=== PATIENT | female | born 1980 | race Caucasian/White ===

== ENCOUNTER 2020-08-10 05:41 | Inpatient (IN) ==
--- NOTE | 2020-08-03 08:17 | Anesthesiology Consultation ---
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 No known Covid positive contacts or Covid related symptoms. No known Covid infection in the past 90 days. Preop Covid testing scheduled 08/06/20= will await results. History Surgery Operation Date: 08/10/20 07:30 Proposed Procedures p Section in LD - Grace Richey MD Height/Weight Height: 5 ft 7 in Weight: 115.666 kg Allergies Allergy/AdvReac Type Severity Reaction Status Date / Time No Known Allergies Allergy Verified 08/02/20 16:27 Medications Home Medications Medication Instructions Recorded Confirmed Last Taken prenat.vits,carlitos,lcr-nivy-lzcsn 1 tab PO BID 01/18/20 08/02/20 Unknown breast pump #1 ea 08/02/20 08/02/20 Unknown Past Medical History Medical History No significant past medical history Past Family History Family History Father Heart disease Grandmother (Maternal) Uterine cancer Mother Gestational diabetes Other Dyslipidemia Hypertension Myocardial infarction No family history of adverse response to anesthesia Past Surgical History Surgical History History of arthroscopy of right knee History of wisdom tooth extraction Social History Smoking Status: Never smoker Do You Dip or Chew Tobacco: No Hx Alcohol Use: No Hx Substance Use: No substance use type: does not use
[2020-08-10] MEDS ORDERED: LACTATED RINGER'S 1,000 ML IV SCH ×2 (06:00→11:28)
[2020-08-10] MEDS ORDERED: CITRIC ACID/SODIUM CITRATE 15 ML UDC PO SCH (06:00)
[2020-08-10 06:06] LABS: Basophils # (auto) 0.03 K/uL (0-0.2); Basophils % (auto) 0.3 %; Eosinophils # (auto) 0.22 K/uL (0-0.5); Hematocrit (blood only) 36.7 % (37-47); Hemoglobin 12.9 g/dL (12.0-16.0); Immature Granulocytes # (auto) 0.05 K/uL (0.00-0.02); Immature Granulocytes % (auto) 0.5 %; Lymphocytes # (auto) 3.28 K/uL (1.2-3.4); Lymphocytes % (auto) 30.4 %; Mean Corpuscular Hemoglobin 30.6 pg (25-34); Mean Corpuscular Hgb Conc 35.1 g/dL (32-36); Mean Corpuscular Volume 87.2 fL (80-100); Mean Platelet Volume 9.7 fL (7.4-10.4); Monocytes # (auto) 0.72 K/uL (0.11-0.59); Monocytes % (auto) 6.7 %; Neutrophils # (auto) 6.48 K/uL (1.4-6.5); Neutrophils % (auto) 60.1 %; Platelet Count 280 K/uL (130-400); RDW Coefficient of Variation 12.8 % (11.5-14.5); RDW Standard Deviation 41.1 fL (36.4-46.3); Red Blood Count 4.21 M/uL (4.2-5.4); White Blood Count 10.78 K/uL (4.8-10.8)
[2020-08-10 07:04] LABS: Appearance Urine Clear (Clear); Bacteria Urine Automated Negative (Negative); Bilirubin Urine Negative (Negative); Blood Urine Negative (Negative); Color Urine Yellow; Epithelial Cell Urine Auto 20-30 /lpf (0-5); Glucose Urine UA Negative (Negative); Ketones Urine Negative (Negative); Leukocyte Esterase Urine 2+ (Negative); Nitrite Urine Negative (Negative); Protein Urine Negative (Negative); RBC Urine Automated 0-4 /hpf (0-4); Specific Gravity Urine 1.017 (1.000-1.030); Urobilinogen Urine Negative (Negative); WBC Urine Automated >30 /hpf (0-5); pH Urine 6.5 (4.5-7.5)
--- NOTE | 2020-08-10 07:14 | History & Physical Bridge Note ---
Date of Service August 10, 2020 History & Physical Bridge Note I have examined the patient, reviewed the History & Physical and in the interval since the performance of the History & Physical I have noted the following changes of clinical significance: no changes noted
[2020-08-10] MEDS ORDERED: ONDANSETRON INJ 2 MG/ML 2 ML VIAL ONE ×2 (07:17→10:08)
[2020-08-10] MEDS ORDERED: fentaNYL citrate 100 MCG/2 ML VIAL ONE (07:20)
[2020-08-10] MEDS ORDERED: MoRPHine SULFATE PF 1 MG/ML 10 ML AMP/VIAL ONE (07:21)
[2020-08-10] MEDS ORDERED: KETOROLAC 30 MG/ML VIAL IV PRN (09:20)
[2020-08-10] MEDS ORDERED: diphenhydrAMINE 50 MG/ML VIAL IV PRN (09:20)
[2020-08-10] MEDS ORDERED: ePHEDrine sulfate 50 MG/ML AMP IV PRN (09:20)
[2020-08-10] MEDS ORDERED: NALOXONE HCL 0.08 MG in SYRINGE 1.8 ML IV PRN (09:20)
[2020-08-10] MEDS ORDERED: NALOXONE HCL 1 MG in SODIUM CHLORIDE 0.9% 1000ML 1,000 ML IV PRN (09:20)
[2020-08-10] MEDS ORDERED: NALOXONE HCL 0.4 MG/1 ML VIAL/CARP IV PRN (09:20)
[2020-08-10] MEDS ORDERED: LACTATED RINGER'S 500 ML IV PRN (09:20)
[2020-08-10] MEDS ORDERED: MoRPHine SULFATE PF 1 MG/ML 10 ML AMP/VIAL INT SPINAL ONE (09:20)
[2020-08-10] MEDS ORDERED: HYDROmorphone INJ 0.5 MG/0.5 ML SYR IV PRN (09:20)
--- NOTE | 2020-08-10 09:22 | Operative Report ---
PG Post Operative Report Pre & Post Diagnosis Operation Date: 08/10/20 07:30 Pre-Op Diagnosis: 1. Term 2. Breech presentation Post-Op Diagnosis: Same I identified the patient and participated in the time-out.: Yes Procedure Operation Date: 08/10/20 07:30 Actual Procedures Low Transverse Section Surgeon Grace Richey MD Interline Clerk Trevon BARAHONA Estimated Blood Loss 500 Findings Consistent with Post-Op Diagnosis Specimens Placenta, Cord blood Anesthesia Type Spinal Complications none Disposition Accompanied Patient To Recovery: Yes Disposition: L&D Description of Procedure The patient was brought to the operating room and placed on the table in the supine position with a leftward tilt, then prepped and draped in standard sterile fashion. A hard time out was taken prior to proceeding. A pfannensteil incision was created sharply and carried down to the fascia using bovie electrocautery. The fascia was nicked and then extended using burnett scissors. The edges of the fascia were grasped with Terra clamps and elevated, then sharply and bluntly dissected off the underlying rectus. The midline of the rectus was identified and bluntly . The peritoneum was bluntly entered, and this entry was extended using pressure from the surgeon's hands. The bladder retractor was placed and the lower uterine segment was examined and found to be well developed. A bladder flap was created and the retractor was replaced behind this flap to protect the bladder. A transverse lower uterine incision was then created, with final entry to the uterine cavity made in a blunt manner with the surgeon's finger. Clear amniotic fluid was encountered. The breech was elevated through the hysterotomy, the was rotated to sacrum-anterior and wrapped in a wet blue towel, delivered to the shoulders, the arms were physiologically swept, and the head was delivered with the neck in flexion. The cord was doubly clamped and cut, then the vigorous infant was taken to the warmer for furnace puncher care. The placenta was manually extracted, then the uterus was gently exteriorized from the maternal abdomen. The cavity was cleared of clot and debris using a dry lap sponge. The angles of the incision were identified with allis clamps, and the hysterotomy was then repaired in running locked fashion using 0-vicryl suture, followed by a second imbricating layer. The tubes and ovaries were examined and found to be normal bilaterally. The posterior gutter was irrigated and cleared of clot and debris. The uterus was then gently re-internalized to the abdomen. Lateral gutters were cleared of clot and debris using a damp lap sponge, and a final exam of the hysterotomy revealed good hemostasis. The rectus muscles were allowed to reapproximate naturally. The angle of the fascia was grasped with a Terra clamp and the fascia was then repaired in running non-locked fashion with 1- vicryl suture. At the completion of repair, the fascia was examined and found to be free of any defect. The subcutaneous tissue was copiously irrigated and then reapproximated using 3-0 chromic. The skin was then closed using 4-0 monocryl in a running subcuticular fashion and a dermabond dressing was applied. The morin was noted to be draining clear yellow urine as the patient was transferred back to her recovery room. I attest to the content of the Intraoperative Record and any orders documented therein. Any exceptions are noted below.
[2020-08-10] MEDS ORDERED: DC INTRASPINAL MORPHINE SCH (09:30)
[2020-08-10] MEDS ORDERED: NO NARCOTICS OR SEDATIVES SCH (09:30)
[2020-08-10] MEDS ORDERED: SODIUM CHLORIDE 0.9% 1000ML 1,000 ML IV SCH (09:30)
--- NOTE | 2020-08-10 09:59 | Anesthesiology Progress Note ---
Date of Service August 10, 2020 Anesthesia Post Procedure Vital Signs Vital Signs: Temp Pulse Resp BP Pulse Ox 08/10/20 09:57 63 99 08/10/20 09:54 16 08/10/20 09:53 75 93 08/10/20 09:52 74 125/87 100 08/10/20 09:47 63 100 08/10/20 09:42 68 14 108/73 99 08/10/20 09:37 71 104/62 100 08/10/20 09:33 72 92 08/10/20 09:32 61 14 105/67 100 08/10/20 09:27 74 99 08/10/20 09:22 71 15 107/70 100 08/10/20 09:17 64 100 08/10/20 09:12 67 98 08/10/20 09:11 36.5 C 67 19 103/67 08/10/20 09:07 76 100 08/10/20 07:30 36.7 C 20 08/10/20 07:15 77 100 08/10/20 07:13 202 H 87 L 08/10/20 07:02 70 130/86 08/10/20 06:01 68 129/78 08/10/20 05:48 36.8 C 16 Transfer of Care Handoff Completed per policy Notes Mental Status: alert / awake / arousable and participated in evaluation Patient Amnestic to Procedure: Yes Nausea / Vomiting: adequately controlled Pain: adequately controlled Airway Patency, RR, SpO2: stable & adequate BP & HR: stable & adequate Hydration State: stable & adequate Neuraxial Anesthesia: was administered and sensory block is resolving Anesthetic Complications: no major complications apparent and Pt Satisfied with anesthetic care
[2020-08-10] MEDS ORDERED: HYDROCORTISONE ACETATE 25 MG SUPP PR PRN (11:28)
[2020-08-10] MEDS ORDERED: SUPERCREAM 0.870% 15 GM JAR EXT PRN (11:28)
[2020-08-10] MEDS ORDERED: BENZOCAINE 20% AER SPR 82.5 GM CAN EXT PRN (11:28)
[2020-08-10] MEDS ORDERED: DIPHTHERIA/TETANUS/PERTUSSIS 0.5 ML SYR/VIAL IM ONE (11:28)
[2020-08-10] MEDS ORDERED: MAGNESIUM HYDROXIDE SUSP 30 ML UDC PO PRN (11:28)
[2020-08-10] MEDS ORDERED: OXYTOCIN 30 UNITS in LACTATED RINGER'S 1,000 ML IV SCH (11:28)
[2020-08-10] MEDS ORDERED: SENNA 8.6 MG TAB PO PRN (11:28)
[2020-08-10] MEDS: ONDANSETRON INJ 2 MG/ML 2 ML VIAL IV PRN ×2 (11:44→16:20)
[2020-08-10] MEDS: SIMETHICONE 80 MG CHEW PO SCH (12:30)
[2020-08-10] MEDS: DOCUSATE SODIUM 100 MG CAP PO SCH (20:07)
[2020-08-11] MEDS: IBUPROFEN 600 MG TAB PO PRN ×5 (00:05→20:13)
[2020-08-11] MEDS ORDERED: PROMETHAZINE HCL 25 MG in SODIUM CHLORIDE 0.9% 50 ML IV PRN (03:24)
[2020-08-11] MEDS ORDERED: diphenhydrAMINE Capsule 25 MG CAP PO PRN (03:24)
[2020-08-11] MEDS ORDERED: oxyCODONE/ACETAMINOPHEN 5mg/325mg TAB PO PRN (03:24)
[2020-08-11] MEDS ORDERED: MEPERIDINE HCL 50 MG/ML CARP IV PRN (03:24)
[2020-08-11] MEDS ORDERED: KETOROLAC 30 MG/ML VIAL IV PRN (03:24)
[2020-08-11] MEDS ORDERED: ONDANSETRON INJ 2 MG/ML 2 ML VIAL IV PRN (03:24)
[2020-08-11] MEDS ORDERED: diphenhydrAMINE 50 MG/ML VIAL IV PRN (03:24)
--- NOTE | 2020-08-11 04:38 | Obstetrical Progress Note ---
Date of Service <Froylan Garrett MD - Last Filed: 08/11/20 06:28> August 11, 2020 Assessment & Plan <Froylan Garrett MD - Last Filed: 08/11/20 06:28> (1) Status post repeat low transverse section: - PNL: Rh [pos], RI, GBS pos, COVID [neg] - Feels well today. Eating well, voiding well, ambulating well - Pain well controlled with ibuprofen 600mg Q4H PRN - Routine postop care -- OOB, ambulation, diet progression as tolerated - After discharge will have 6 week follow-up with Dr. Richey Subjective <Froylan Garrett MD - Last Filed: 08/11/20 06:28> Anushka is a 39 y/o female who is POD#1 following at 39+ weeks. She reports feeling well overall this morning. Some abdominal cramping and 4/10 pain well managed on analgesics. Voiding well. Tolerating meals overnight without difficulty. Patient has been able to ambulate some. Is passing gas, has not yet had a bowel movement. Has persistent lochia with some improvement this morning. Currently . Physical Exam <Froylan Garrett MD - Last Filed: 08/11/20 06:28> General: Alert, oriented. No acute distress. Cardiac: Regular rate and rhythm. No murmurs. Respiratory: Clear to auscultation bilaterally a/p, no wheezes/rales/rhonchi. No increased work of breathing. Symmetrical chest rise. No respiratory distress. Abdomen: Soft, nontender, nondistended. Bowel sounds present. Surgical scar clean, dry, intact. Uterus: Uterine fundus firm, palpable ~1 cm below umbilicus. Lower Extremities: No lower extremity edema or swelling. No deep calf pain. Maura's negative bilaterally. Results & Data ([facility]) <Froylan Garrett MD - Last Filed: 08/11/20 06:28> Vital Signs (Past 12 Hours) Vital Signs Temp Pulse Resp BP BP Pulse Ox Pulse Ox 08/11/20 00:00 36.8 C 62 16 122/80 98 08/10/20 21:09 16 98 08/10/20 21:07 36.5 C 59 L 16 125/85 98 98 08/10/20 19:00 20 98 08/10/20 18:00 20 97 08/10/20 17:00 16 97 <Grace Richey MD - Last Filed: 08/11/20 08:09> Co-Signing Physician Notes Resident Physician Supervision Note: I interviewed and examined the patient. Discussed with Dr. Covington and agree with findings and plan as documented in the note. Any exceptions or clarifications are listed here: [ ] Documented By: Grace Richey MD, FACOG Resident Activity Tracking <Froylan Garrett MD - Last Filed: 08/11/20 06:28> Resident Involvement: Resident Care Provided Care Provided: OB Delivery
[2020-08-11 06:42] LABS: Basophils # (auto) 0.04 K/uL (0-0.2); Basophils % (auto) 0.3 %; Eosinophils # (auto) 0.17 K/uL (0-0.5); Eosinophils % (auto) 1.3 %; Hematocrit (blood only) 29.4 % (37-47); Hemoglobin 10.5 g/dL (12.0-16.0); Immature Granulocytes # (auto) 0.03 K/uL (0.00-0.02); Immature Granulocytes % (auto) 0.2 %; Lymphocytes # (auto) 3.39 K/uL (1.2-3.4); Lymphocytes % (auto) 26.8 %; Mean Corpuscular Hemoglobin 31.3 pg (25-34); Mean Corpuscular Hgb Conc 35.7 g/dL (32-36); Mean Corpuscular Volume 87.5 fL (80-100); Mean Platelet Volume 9.9 fL (7.4-10.4); Monocytes # (auto) 0.84 K/uL (0.11-0.59); Monocytes % (auto) 6.6 %; Neutrophils # (auto) 8.17 K/uL (1.4-6.5); Neutrophils % (auto) 64.8 %; Platelet Count 235 K/uL (130-400); RDW Coefficient of Variation 12.9 % (11.5-14.5); RDW Standard Deviation 41.7 fL (36.4-46.3); Red Blood Count 3.36 M/uL (4.2-5.4); White Blood Count 12.64 K/uL (4.8-10.8)
[2020-08-11] MEDS: DOCUSATE SODIUM 100 MG CAP PO SCH ×2 (08:17→20:14)
[2020-08-11] MEDS: PRENATAL VITAMIN 1 TAB PO SCH (08:18)
[2020-08-11] MEDS: SIMETHICONE 80 MG CHEW PO SCH ×4 (08:18→20:15)
[2020-08-11] MEDS: FERROUS SULFATE 325 MG TAB PO SCH (08:18)
[2020-08-12] MEDS: IBUPROFEN 600 MG TAB PO PRN ×6 (00:52→21:34)
[2020-08-12] MEDS: DOCUSATE SODIUM 100 MG CAP PO SCH ×2 (08:05→20:56)
[2020-08-12] MEDS: PRENATAL VITAMIN 1 TAB PO SCH (08:05)
[2020-08-12] MEDS: SIMETHICONE 80 MG CHEW PO SCH ×4 (08:05→20:56)
[2020-08-12 08:38] LABS: Hematocrit (blood only) 31.2 % (37-47); Hemoglobin 10.9 g/dL (12.0-16.0)
[2020-08-12] MEDS: FERROUS SULFATE 325 MG TAB PO SCH (09:46)
--- NOTE | 2020-08-12 09:53 | Obstetrical Progress Note ---
Date of Service August 12, 2020 Assessment & Plan (1) Status post repeat low transverse section: 39yo day 2 S/p LTCS. Doing well. Routine care Subjective Ambulation: ambulating normally Voiding: no voiding problems Passing Gas:: Yes Diet Tolerance:: regular diet Lochia:: Moderate Feeding Type:: breast feeding Physical Exam Constitutional WD/WN, vitals as above Respiratory normal respiratory effort; no respiratory distress and no labored breathing Gastrointestinal (Abdomen) Inspection/Auscultation: abdomen normal to inspection; abdomen not distended Percussion/Palpation: abdomen soft; abdomen nontender, no guarding and abdomen not rigid Incision C/D/I Genitourinary OB Exam Abdomen: + fundal height Fundus: + firm and + relation to umbilicus (Below); not tender and not boggy Results & Data ([facility]) Vital Signs (Past 12 Hours) Vital Signs Temp Pulse Resp BP 08/12/20 07:25 36.5 C 69 18 130/84
[2020-08-13] MEDS: IBUPROFEN 600 MG TAB PO PRN ×3 (01:58→12:53)
[2020-08-13] MEDS: SIMETHICONE 80 MG CHEW PO SCH ×2 (07:45→12:53)
[2020-08-13] MEDS: PRENATAL VITAMIN 1 TAB PO SCH (07:45)
[2020-08-13] MEDS: FERROUS SULFATE 325 MG TAB PO SCH (07:46)
[2020-08-13] MEDS: DOCUSATE SODIUM 100 MG CAP PO SCH (07:46)
--- NOTE | 2020-08-13 07:53 | Obstetrical Progress Note ---
Date of Service August 13, 2020 Assessment & Plan (1) Status post repeat low transverse section: 39yo day 2 S/p LTCS. Doing well. Stable for discharge Subjective Ambulation: ambulating normally Voiding: no voiding problems Passing Gas:: Yes Diet Tolerance:: regular diet Lochia:: Moderate Feeding Type:: breast feeding Physical Exam Constitutional WD/WN, vitals as above Respiratory normal respiratory effort; no respiratory distress and no labored breathing Gastrointestinal (Abdomen) Inspection/Auscultation: abdomen normal to inspection; abdomen not distended Percussion/Palpation: abdomen soft; abdomen nontender, no guarding and abdomen not rigid Incision: C/D/I Genitourinary OB Exam Abdomen: + fundal height Fundus: + firm and + relation to umbilicus (Below); not tender and not boggy Results & Data ([facility]) Vital Signs (Past 12 Hours) Vital Signs Temp Pulse Resp BP 08/12/20 23:45 36.7 C 67 18 111/77
--- NOTE | 2020-08-14 08:13 | Discharge Summary ---
Date of Service August 14, 2020 Discharge Data Consultations 08/10/20 05:41 Consult Anesthesiology Stat Procedures Performed Operation Date: 08/10/20 07:30 Actual Procedures p Section in LD with the of a live female child at 0823 in Main OR # 3. (Bilateral) - Grace Richey MD Hospital Course (1) Breech presentation of fetus: Patient underwent uncomplicated section for breech presentation, and had an uncomplicated postop course. She was discharged home on POD#2 with usual plan for 6 week follow up. Coding Level of Care Code None Diagnoses Breech presentation of fetus O32.1XX0
== END 2020-08-13 13:40 | disposition home or self-care (01) | DRG 788 ==
LOC: 4S1 05:41 → 4S2 11:30 → EDSTATUS 08-13 08:50

== ENCOUNTER 2023-11-20 06:58 | Inpatient (IN) ==
--- NOTE | 2023-11-09 14:05 | Anesthesiology Consultation ---
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 No known infectious disease contacts in past 10 days or current infectious disease symptoms. No recent travel outside the country. Patient seen by [facility] 08/25/2023 = Patient referred for assessment and echocardiography as new patient due to advanced maternal age. Patient with difficulty with visualization of the heart on prior obstetrical ultrasounds. Current is otherwise uncomplicated. Baby's heart appears normal. No further follow-up in cardiology clinic is necessary prior to delivery unless new concerns or question arises. I do not see any contraindication from a cardiac standpoint for her to deliver at [facility]. Pediatric cardiology team at [facility] could be consulted at any time should there be any concern about baby's cardiovascular status. History Surgery Operation Date: 11/20/23 07:30 Proposed Procedures p Section (Delivery of Baby Through Abdominal Incision) - Stacia Marin MD, FACOG Height/Weight Height: 5 ft 7 in Weight: 124.738 kg Allergies Allergy/AdvReac Type Severity Reaction Status Date / Time No Known Allergies Allergy Verified 11/09/23 10:48 Medications Home Medications Medication Instructions Recorded Confirmed Last Taken prenat.vits,carlitos,zku-nzzu-btqle 1 tab PO BID 01/18/20 11/09/23 Unknown acetone (urine) test (Ketone Urine #50 ea 09/21/23 11/05/23 Unknown Test strips) blood-glucose meter (OneTouch #1 ea 09/21/23 11/05/23 Unknown Verio Reflect Meter) lancets 33 gauge (OneTouch Delica #150 ea 09/21/23 11/05/23 Unknown Plus Lancet) blood sugar diagnostic (OneTouch #150 ea 11/02/23 11/05/23 Unknown Verio test strips) propranolol 40 mg tablet 20 - 40 mg PO UD PRN prior to 11/09/23 11/09/23 Unknown musical concerts, helps w/adrenaline zee Past Medical History Medical History GBS carrier Gestational diabetes w/current (2023) History of asthma as a child, no inhaler since high school, no current issues History of chicken pox as a child Nausea and vomiting after administration of anesthetic agent after last (spinal anesthesia) Past Family History Family History Father Heart disease Grandmother (Maternal) Uterine cancer Mother Gestational diabetes Other Dyslipidemia Hypertension Myocardial infarction No family history of adverse response to anesthesia Denies family history of Ovarian cancer Breast cancer Colorectal cancer Past Surgical History Surgical History (Updated 11/09/23 @ 14:06 by Rosario Barba PA-C) History of arthroscopy of right knee History of wisdom tooth extraction S/P section 2020- due to breech position Social History Smoking Status: Never smoker Do You Dip or Chew Tobacco: No Hx Alcohol Use: Yes (none in last 4 years) Hx Substance Use: No substance use type: does not use
--- NOTE | 2023-11-20 07:22 | History & Physical Report ---
Date of Service November 20, 2023 Assessment & Plan (1) Previous delivery affecting , antepartum: Plan: Repeat section. The patient was counseled to the nature of the procedure including alternatives such as labor. Risks were discussed including bleeding infection injury to bowel bladder ureter vessels and even baby. The risks of internal organ injury were discussed as being higher with prior sections. Deep Vein Thrombosis, pulmonary embolus and breakdown of the incision discussed. Deep vein thrombosis pulmonary embolus hernia and failure of the incision to heal were discussed Patient verbalized understanding of this and was given ample time to ask questions Admission and Anticipated Discharge Date Admission Date: November 20, 2023 History of Present Illness Primary Care Provider: David Graff FREDDY Calculator Estimated Delivery Date Method Current WG Current Estimate 11/22/23 LMP (Certain) 39w 3d LMP: 02/15/23 : 3 Full term: 1 Premature: 0 Total Number of Induced Abortions: 0 Total Number of Spontaneous Abortions: 1 Ectopics: 0 Multiple births: 0 Number of Living Children: 1 and Delivery Plans AMA>40@del *Anatomy Scan @ 20wks * Echo [id number]- 08/25/23 *Growth scan @32wks *Weekly NST's @36 wks *Twice weekly NST @38wks *Weekly TORY's @38wks *Deliver by 40 wks GDM w/28wk glucola *Begin monthly Growth US's Previous - 1'CS was for Breech, never labored Interested in CONSENT SIGNED - 09/04/2023 C/S SCHEDULED FOR 11/20/[address] HERRING Allergies Allergy/AdvReac Type Severity Reaction Status Date / Time No Known Allergies Allergy Verified 11/18/23 14:30 Home Medications Medication Instructions Recorded Confirmed Type prenat.vits,carlitos,moh-prpn-cojkq 1 tab PO BID 01/18/20 11/18/23 History acetone (urine) test (Ketone Urine #50 ea 09/21/23 11/18/23 Rx Test strips) blood-glucose meter (OneTouch #1 ea 09/21/23 11/18/23 Rx Verio Reflect Meter) lancets 33 gauge (OneTouch Delica #150 ea 09/21/23 11/18/23 Rx Plus Lancet) blood sugar diagnostic (OneTouch #150 ea 11/02/23 11/18/23 Rx Verio test strips) propranolol 40 mg tablet 20 - 40 mg PO UD PRN prior to 11/09/23 11/18/23 History musical concerts, helps w/adrenaline zee breast pump #1 ea 11/13/23 11/18/23 Rx Patient History Medical History Nausea and vomiting after administration of anesthetic agent after last (spinal anesthesia) History of asthma as a child, no inhaler since high school, no current issues Gestational diabetes w/current (2023) History of chicken pox as a child GBS carrier Surgical History (Updated 11/09/23 @ 14:06 by Rosario Barba PA-C) S/P section 2020- due to breech position History of wisdom tooth extraction History of arthroscopy of right knee Family History Father Heart disease Grandmother (Maternal) Uterine cancer Mother Gestational diabetes Other Dyslipidemia Hypertension Myocardial infarction No family history of adverse response to anesthesia Denies family history of Ovarian cancer Breast cancer Colorectal cancer Social History (Updated 04/08/23 @ 14:05 by Vera Delong) Smoking Status: Never smoker Second Hand Exposure: No; Do You Dip or Chew Tobacco: No; Tobacco Cessation Education Requested by Patient: No Hx Alcohol Use: Yes (none in last 4 years) Hx Substance Use: No Preferred Language: [place] Zealander Communication Ability: Effective Computer Patternmaker Required: No Beliefs That Will Affect Care: Buddhist Buddhist Beliefs: anglican marital status: marital status details: Eben Zambrano [phone] Current Living Situation: Spouse and Family Current Living Situation Comment: lives with spouse, son, step 2 stepdaughter, no pets current occupational status: employed 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 @ [employer], Other Information That Helps Us Care for You: No Feels Safe at Home: Yes Safety Concerns: Feels Safe At This Time Assistive Devices: Contacts and Glasses Physical Exam Constitutional: WD/WN, vitals as above well developed and well nourished Respiratory: normal respiratory effort, lungs clear to auscultation normal respiratory effort Cardiovascular: RRR, no murmur, no edema Gastrointestinal (Abdomen): normal bowel sounds, soft, nontender, no hepatosplenomegaly Results & Data Vital Signs (Past 12 Hours) Vital Signs Pulse BP 11/20/23 07:14 75 138/97 Coding Level of Care Code None Diagnoses Previous delivery affecting , antepartum O34.219
[2023-11-20] MEDS: LACTATED RINGER'S 1,000 ML IV SCH ×3 (07:42→22:09)
[2023-11-20 08:00] LABS: Basophils # (auto) 0.06 K/uL (0.00-0.20); Basophils % (auto) 0.7 %; Eosinophils # (auto) 0.15 K/uL (0.00-0.50); Eosinophils % (auto) 1.7 %; Hematocrit (blood only) 36.7 % (37.0-47.0); Hemoglobin 12.5 g/dl (12.0-16.0); Immature Granulocytes # (auto) 0.02 K/uL (0.01-0.20); Immature Granulocytes % (auto) 0.2 %; Lymphocytes # (auto) 2.58 K/uL (1.20-3.40); Mean Corpuscular Hemoglobin 29.3 pg (25.0-34.0); Mean Corpuscular Hgb Conc 34.1 g/dL (32.0-36.0); Mean Corpuscular Volume 85.9 fL (80.0-100.0); Mean Platelet Volume 9.9 fL (9.4-12.4); Monocytes # (auto) 0.57 K/uL (0.11-0.59); Monocytes % (auto) 6.6 %; Neutrophils # (auto) 5.21 K/uL (1.40-6.50); Neutrophils % (auto) 60.8 %; Platelet Count 269 K/uL (130-400); RDW Coefficient of Variation 13.2 % (11.5-14.5); RDW Standard Deviation 40.7 fL (36.4-46.3); Red Blood Count 4.27 M/uL (4.20-5.40); White Blood Count 8.59 K/ul (4.8-10.8)
[2023-11-20] MEDS ORDERED: SODIUM CHLORIDE 0.9% 250 ML IV PRN (08:08)
[2023-11-20] MEDS ORDERED: ONDANSETRON INJ 2 MG/ML 2 ML VIAL ONE (08:27)
[2023-11-20] MEDS ORDERED: fentaNYL citrate PF 100 MCG/2 ML VIAL ONE (08:27)
[2023-11-20] MEDS ORDERED: MoRPHine SULFATE PF 1 MG/ML 10 ML AMP/VIAL ONE (08:27)
[2023-11-20] MEDS ORDERED: ePHEDrine sulfate 50 MG/5 ML SYR ONE (08:27)
[2023-11-20] MEDS ORDERED: PHENYLEPHRINE 100MCG/ML 10ML SYR IV ONE (08:27)
[2023-11-20] MEDS ORDERED: DEXAMETHASONE SOD INJ 4 MG/ML VIAL ONE (08:27)
[2023-11-20] MEDS ORDERED: OXYTOCIN 10 UNITS/ML VIAL ONE (08:27)
[2023-11-20] MEDS: CITRIC ACID/SODIUM CITRATE 15 ML UDC PO SCH (09:48)
[2023-11-20] MEDS: ceFAZolin 3,000 MG/72.5 ML BAG IV SCH (09:51)
[2023-11-20] MEDS ORDERED: NALOXONE HCL 1 MG in SODIUM CHLORIDE 0.9% 1,000 ML IV PRN (10:24)
[2023-11-20] MEDS ORDERED: NALBUPHINE HCL 5 MG in SYRINGE 0 ML IV PRN (10:24)
[2023-11-20] MEDS ORDERED: ePHEDrine sulfate 50 MG/ML AMP IV PRN (10:24)
[2023-11-20] MEDS ORDERED: PROMETHAZINE HCL 6.25 MG in SODIUM CHLORIDE 0.9% 50 ML IV PRN (10:24)
[2023-11-20] MEDS ORDERED: HYDROmorphone INJ 0.5 MG/0.5 ML SYR IV PRN (10:24)
[2023-11-20] MEDS ORDERED: NALOXONE HCL 0.4 MG/1 ML VIAL/CARP IV PRN (10:24)
[2023-11-20] MEDS ORDERED: LACTATED RINGER'S 500 ML IV PRN (10:24)
[2023-11-20] MEDS ORDERED: diphenhydrAMINE 50 MG/ML VIAL IV PRN (10:24)
[2023-11-20] MEDS ORDERED: NALOXONE HCL 0.08 MG in SYRINGE 1.8 ML IV PRN (10:24)
[2023-11-20] MEDS ORDERED: NO NARCOTICS OR SEDATIVES SCH (10:30)
[2023-11-20] MEDS ORDERED: DC INTRASPINAL MORPHINE SCH (10:30)
--- NOTE | 2023-11-20 10:59 | Operative Report ---
PG Post Operative Report Pre & Post Diagnosis Operation Date: 11/20/23 09:00 Pre-Op Diagnosis: Repeat section. Incomplete breech presentation. Post-Op Diagnosis: Repeat section. Incomplete breech presentation. Delivery of live female child at 1018. I identified the patient and participated in the time-out.: Yes Procedure Operation Date: 11/20/23 09:00 Actual Procedures p Section through lower uterine transverse incision, delivery of live female child at 1018 - Stacia Marin MD, FACOG Surgeon Stacia Marin MD, FACOG Edge Trimming Machine Operator Peg HIGHTOWER Estimated Blood Loss 233 (QBL) Findings Consistent with Post-Op Diagnosis Specimens Cord gases Description of Procedure Regional anesthetic had been given by anesthesia patient was prepped and draped with a leftward tilt preoperative antibiotics had been given in appropriate timing by anesthesiology. Once the prep was allowed to fully dry timeout was performed. Pickups with teeth were used to test the incision area was found to be adequate for incision as the patient did not feel sharp pain. Scalpel was used to make a Pfannenstiel incision on the lower abdomen. We then cut through the subcutaneous fat down to the level of the anterior rectus sheath fascia this was cut in the midline and then extended laterally with the curved Flores scissors. At this stage we then placed 2 Terra clamps on the anterior aspect of the fascia. Using the curved Flores's we are able to dissect the fascia superiorly away from the rectus muscles. Care was taken to maintain hemostasis. Terra clamps were then placed to the inferior aspect of the anterior sheath of the fascia. Fascia was then dissected away from the rectus muscles inferiorly towards the pubic bone. A Terra was then placed in the midline both inferiorly and superiorly. This was to allow exposure by retraction rectus muscles were in the midline with were then able to cut through the peritoneum and then enter the peritoneal cavity. Opening was enlarged to allow exposure of the peritoneal cavity both superiorly and inferiorly. Once adequate space was obtained a bladder retractor was placed to expose the lower segment Metzenbaums were used to dissect the bladder flap inferiorly away from the uterus. This was done sharply bladder retractor was then repositioned to expose the lower segment of the uterus Fresh scalpel was used to make a low transverse incision on the uterus. Uterus was then entered bluntly with the operators finger, membranes ruptured and the opening was enlarged using the operators fingers bluntly pulling superiorly and inferiorly to allow exposure. Baby was in incomplete breech presentation with 1 foot down and 1 foot and nohelia breech position I was able to get the baby's hips flexed and then hips were delivered through the incision through the abdomen baby's back placed anterior gentle traction using a moist cloth to bring the baby's further out arms were swept towards the chest delivering them there was no nuchal cord baby's head was easily delivered without extension live vigorous female cord blood obtained baby handed to pediatrics. Placenta removed was removed with traction we ensure the entire placenta was removed with a moist lap sponge into the uterus Uterus was then exteriorized. IV Pitocin had been started by anesthesia tone improved there were no extensions the uterus was then closed using 0 Monocryl in a 2 layer closure the first layer closed in a running locked fashion from left to right and then a second closure from left to right in a running nonlocked fashion. At this stage hemostasis was excellent. Uterus was placed back in the peritoneal cavity with suction irrigation out and inspection of the uterus at this stage revealed excellent hemostasis Retractors were removed urine color was clear at this stage of the case we inspected the rectus muscles they were hemostatic fascia was closed with 0 Vicryl subcutaneous fat was irrigated and closed with 3-0 Vicryl skin closed with 4-0 subcuticular Monocryl I attest to the content of the Intraoperative Record and any orders documented therein. Any exceptions are noted below. OB Procedure Charges 42583
[2023-11-20] MEDS ORDERED: HYDROCORTISONE ACETATE 25 MG SUPP PR PRN (11:32)
[2023-11-20] MEDS ORDERED: SENNA 8.6 MG TAB PO PRN (11:32)
[2023-11-20] MEDS ORDERED: BENZOCAINE 20% SPRY 85 APPLN/85 GM CAN EXT PRN (11:32)
[2023-11-20] MEDS ORDERED: MAGNESIUM HYDROXIDE SUSP 30 ML UDC PO PRN (11:32)
[2023-11-20] MEDS ORDERED: ONDANSETRON INJ 2 MG/ML 2 ML VIAL IV PRN (11:32)
[2023-11-20] MEDS ORDERED: diphenhydrAMINE Capsule 25 MG CAP PO PRN (11:32)
--- NOTE | 2023-11-20 12:54 | Anesthesiology Progress Note ---
Date of Service November 20, 2023 Anesthesia Post Procedure Vital Signs Vital Signs: Temp Pulse Resp BP Pulse Ox 11/20/23 12:48 61 97 11/20/23 12:43 97 11/20/23 12:43 63 11/20/23 12:43 65 94 11/20/23 12:38 80 97 11/20/23 12:33 51 L 95 11/20/23 12:28 58 L 96 11/20/23 12:26 55 L 102/60 11/20/23 12:23 70 96 11/20/23 12:22 18 11/20/23 12:18 59 L 96 11/20/23 12:13 64 97 11/20/23 12:08 75 96 11/20/23 12:03 70 96 11/20/23 11:58 65 96 11/20/23 11:53 79 97 11/20/23 11:52 76 139/65 11/20/23 11:48 66 96 11/20/23 11:44 64 126/62 11/20/23 11:43 67 98 11/20/23 11:42 16 11/20/23 11:39 71 96/65 L 11/20/23 11:38 66 97 11/20/23 11:33 98 11/20/23 11:33 68 11/20/23 11:33 67 93/59 L 11/20/23 11:32 20 11/20/23 11:28 66 99 11/20/23 11:23 97 11/20/23 11:23 61 11/20/23 11:23 63 97/57 L 11/20/23 11:22 20 11/20/23 11:18 69 98 11/20/23 11:13 98 11/20/23 11:13 72 11/20/23 11:13 66 95/56 L 11/20/23 11:12 18 11/20/23 11:08 67 96 11/20/23 11:03 97 11/20/23 11:03 67 11/20/23 11:03 65 94/53 L 11/20/23 11:02 18 11/20/23 11:00 71 94 11/20/23 10:58 70 98 11/20/23 10:53 66 97 11/20/23 10:52 36.5 C 20 11/20/23 10:52 69 101/58 L 11/20/23 09:30 20 11/20/23 09:30 20 11/20/23 09:00 18 11/20/23 09:00 18 11/20/23 08:37 75 97 11/20/23 08:32 67 97 11/20/23 08:27 62 98 11/20/23 08:22 81 99 11/20/23 08:17 70 96 11/20/23 08:12 77 96 11/20/23 08:07 69 98 11/20/23 08:02 79 97 11/20/23 07:57 73 96 11/20/23 07:52 76 97 11/20/23 07:48 36.5 C 20 11/20/23 07:47 81 97 11/20/23 07:27 80 130/85 11/20/23 07:14 75 138/97 Transfer of Care Handoff Completed per policy Notes Mental Status: alert / awake / arousable and participated in evaluation Patient Amnestic to Procedure: No Nausea / Vomiting: adequately controlled Pain: adequately controlled Airway Patency, RR, SpO2: stable & adequate BP & HR: stable & adequate Hydration State: stable & adequate Neuraxial Anesthesia: was administered and sensory block resolved Anesthetic Complications: no major complications apparent and Pt Satisfied with anesthetic care
[2023-11-20] MEDS: SIMETHICONE 80 MG CHEW PO SCH (13:17)
[2023-11-20] MEDS: OXYTOCIN 20 UNITS/LR 1,002 ML IV SCH (13:58)
[2023-11-20] MEDS: ONDANSETRON INJ 2 MG/ML 2 ML VIAL IV PRN (16:02)
[2023-11-20] MEDS: DOCUSATE SODIUM 100 MG CAP PO SCH (21:22)
[2023-11-20] MEDS: KETOROLAC 30 MG/ML VIAL IV PRN (21:22)
[2023-11-21] MEDS ORDERED: diphenhydrAMINE 50 MG/ML VIAL IV PRN (04:25)
[2023-11-21] MEDS ORDERED: PROMETHAZINE HCL 25 MG in SODIUM CHLORIDE 0.9% 50 ML IV PRN (04:25)
[2023-11-21] MEDS ORDERED: KETOROLAC 30 MG/ML VIAL IV PRN (04:25)
[2023-11-21] MEDS: IBUPROFEN 600 MG TAB PO PRN (04:47)
[2023-11-21] MEDS: oxyCODONE/ACETAMINOPHEN 5mg/325mg TAB PO PRN (04:47)
--- NOTE | 2023-11-21 06:44 | Obstetrical Progress Note ---
Date of Service November 21, 2023 Assessment & Plan (1) Encounter for care and examination after delivery: 43 [facility], doing [facility] -Meeting all pp milestones -Rh+/rubella equiv/ -f/u 6 weeks for appt, continue care Subjective Ambulation: ambulating normally Voiding: no voiding problems Passing Gas:: No (burping) Diet Tolerance:: regular diet Lochia:: Small Feeding Type:: breast feeding Pain well managed with medication Review of Systems Denies fevers, chills, n/v, STEWART, CP, SOB Physical Exam Constitutional WD/WN, vitals as above no acute distress Respiratory normal respiratory effort, lungs clear to auscultation Cardiovascular RRR, no murmur, no edema Gastrointestinal (Abdomen) Percussion/Palpation: abdomen soft; abdomen nontender fundus firm at umbilicus and NT, dressing c/d/i Musculoskeletal BLE symmetric, nonerythematous, nontender Results & Data Vital Signs (Past 12 Hours) Vital Signs Temp Pulse Resp BP Pulse Ox O2 Del Method 11/21/23 04:25 97.5 F L 83 18 111/74 97 Room Air 11/21/23 04:05 18 95 11/21/23 03:15 18 96 11/21/23 02:10 18 97 11/21/23 01:10 18 96 11/21/23 00:00 18 98 11/20/23 23:15 Room Air 11/20/23 23:15 97.7 F 68 18 108/75 97 Room Air 11/20/23 23:00 20 100 11/20/23 22:00 20 100 11/20/23 21:00 20 100 11/20/23 20:00 20 100 11/20/23 20:00 97.5 F L 60 20 121/78 100 Room Air 11/20/23 18:45 16 97
[2023-11-21 07:29] LABS: Basophils # (auto) 0.04 K/uL (0.00-0.20); Basophils % (auto) 0.4 %; Eosinophils # (auto) 0.21 K/uL (0.00-0.50); Hemoglobin 10.8 g/dl (12.0-16.0); Immature Granulocytes # (auto) 0.03 K/uL (0.01-0.20); Immature Granulocytes % (auto) 0.3 %; Lymphocytes % (auto) 24.2 %; Mean Corpuscular Hemoglobin 28.7 pg (25.0-34.0); Mean Corpuscular Hgb Conc 32.7 g/dL (32.0-36.0); Mean Corpuscular Volume 87.8 fL (80.0-100.0); Monocytes # (auto) 0.73 K/uL (0.11-0.59); Monocytes % (auto) 6.8 %; Neutrophils # (auto) 7.13 K/uL (1.40-6.50); Neutrophils % (auto) 66.3 %; Platelet Count 230 K/uL (130-400); RDW Coefficient of Variation 13.1 % (11.5-14.5); RDW Standard Deviation 41.1 fL (36.4-46.3); Red Blood Count 3.76 M/uL (4.20-5.40); White Blood Count 10.74 K/ul (4.8-10.8)
[2023-11-21] MEDS: SODIUM CHLORIDE 0.9% 1,000 ML IV SCH (07:30)
[2023-11-21] MEDS: MoRPHine SULFATE PF 1 MG/ML 10 ML AMP/VIAL INT SPINAL ONE (07:30)
[2023-11-21] MEDS: DIPHTHER/TETAN/PERTUS Vaccine (Tdap, Adol/Adult) 0.5mL IM ONE (07:31)
[2023-11-21] MEDS: FERROUS SULFATE 325 MG TAB PO SCH (08:32)
[2023-11-21] MEDS: PRENATAL VITAMIN 1 TAB PO SCH (08:32)
[2023-11-21] MEDS: MEASLES, MUMPS & RUBELLA VIRUS VACCINE (MMR) 0.5ML VIAL SQ ONE (18:06)
[2023-11-21] MEDS: bisacodyL 5 MG TABEC PO SCH (20:24)
[2023-11-22 07:08] LABS: Hemoglobin 11.5 g/dl (12.0-16.0)
--- NOTE | 2023-11-22 08:50 | Obstetrical Progress Note ---
Date of Service November 22, 2023 Assessment & Plan (1) Encounter for care and examination after delivery: Postop day #2 from section the patient is doing well minimal bleeding ambulating well no extremity pain continue current care Subjective Ambulation: ambulating normally Voiding: no voiding problems Passing Gas:: Yes Diet Tolerance:: regular diet Lochia:: Small Feeding Type:: breast feeding Physical Exam Constitutional WD/WN, vitals as above well developed and well nourished Respiratory normal respiratory effort, lungs clear to auscultation normal respiratory effort Cardiovascular RRR, no murmur, no edema Gastrointestinal (Abdomen) normal bowel sounds, soft, nontender, no hepatosplenomegaly Results & Data Vital Signs (Past 12 Hours) Vital Signs Temp Pulse Resp BP Pulse Ox O2 Del Method 11/21/23 23:45 97.7 F 70 18 123/83 96 Room Air
[2023-11-22] MEDS ORDERED: bisacodyL 10 MG SUPP PR PRN (10:55)
--- NOTE | 2023-11-23 08:54 | Obstetrical Progress Note ---
Date of Service <Viral Tamez DO - Last Filed: 11/23/23 09:02> November 23, 2023 Assessment & Plan <Viral Tamez DO - Last Filed: 11/23/23 09:02> (1) Encounter for care and examination after delivery: Patient is POD 3 s/p repeat lower transverse and doing well - Eating well, voiding well, ambulating well - vitals reviewed and within normal limits - pain well controlled with analgesics - OOB, ambulation, diet progression as tolerated - Blood type: A positive, GBS carrier, rubella immune - Plan to discharge today - After discharge, 6 week follow up with Dr. Marin <Stacia Marin MD, FACOG - Last Filed: 11/24/23 07:46> (1) Encounter for care and examination after delivery: Subjective <Viral Tamez DO - Last Filed: 11/23/23 09:02> 43 yo post-operative day 3 s/p repeat lower transverse at 40 weeks Ambulation: ambulating normally Voiding: no voiding problems Passing Gas:: Yes Diet Tolerance:: regular diet Lochia:: Small Feeding Type:: breast feeding w/o difficulty Current Pain Level: 4/10 and managed well Resting comfortably this AM in NAD. Review of Systems Patient Denies: Fevers, chills Shortness of breath, coughing, wheezing Chest pain, pressure or palpitations Breast pain or discharge Dysuria, nausea, vomiting Lower extremity edema, calf pain or tenderness Physical Exam <Viral Tamez DO - Last Filed: 11/23/23 09:02> General: patient resting comfortably, NAD, non-toxic in appearance, answers questions appropriately. Skin: warm, dry, intact HEENT: NC/AT, anicteric sclera, conjunctiva without injection, moist mucus membranes. Heart: +S1/S2, regular rhythm and rate, no murmur Lungs: equal air entry bilaterally, no rales/rhonchi/wheezes Abd: +BS, soft, NT/ND, uterine fundus firm at umbilicus, caesarean incision C/D/I. Ext: warm, no clubbing/cyanosis or edema, Maura's neg. Neuro: nonfocal, speech intact, no facial droop, moving all extremities. Results & Data <Viral Tolentinody, DO - Last Filed: 11/23/23 09:02> Vital Signs (Past 12 Hours) Vital Signs Temp Pulse Resp BP Pulse Ox O2 Del Method 11/22/23 23:59 36.6 C 76 18 118/81 97 Room Air Temp Pulse Resp BP Pulse Ox O2 Del Method 11/21/23 04:25 97.5 F L 83 18 111/74 97 Room Air 11/21/23 04:05 18 95 11/21/23 03:15 18 96 11/21/23 02:10 18 97 11/21/23 01:10 18 96 11/21/23 00:00 18 98 11/20/23 23:15 Room Air 11/20/23 23:15 97.7 F 68 18 108/75 97 Room Air 11/20/23 23:00 20 100 11/20/23 22:00 20 100 11/20/23 21:00 20 100 11/20/23 20:00 20 100 11/20/23 20:00 97.5 F L 60 20 121/78 100 Room Air 11/20/23 18:45 16 97 Diagnostic Findings OB visit summary Date EGA Weight FH Pres FHR FM CX BP Alb Glu Edema NOV Prov Notes 04/08/23 7w 3d Nob nurse visit via phone consult. 04/16/23 8w 4d 156 lb 9.6 oz(-100 lb)256 lb 9.6 oz(+0 oz) 8 +US 126/74 0 4w JBS NOB labs, [facility] - SP 05/13/23 12w 3d 255 lb 12.8 oz(-12.8 oz) 12 145 128 /82 0 4w MMC Wants genetic testing - SP 06/12/23 16w 5d 256 lb 12.8 oz(+3.2 oz) c/w 135 132 /82 0 4w JBS 1 hr Gtt; MSAFP lew y - BAL 07/13/23 21w 1d 260 lb 6.4 oz(+3 lb 12.8 oz) US US 13 0 4w JFD SP 08/10/23 25w 1d 271 lb 3.2 oz(+14 lb 9.6 oz) 25 140 142/97449/86 TR 3w MMC cold Sx x2wks - ML cold Sx x2wks. Recheck bp after 5min - ML 09/04/23 28w 5d 271 lb 3.2 oz(+14 lb 9.6 oz) 29 130s Active 128/78 0 2w MLN 28wk labs, 1hr gtt t zac, UACS, Tdap, Papers - SP 09/17/23 30w 4d 271 lb 6.4 oz(+14 lb 12.8 oz) 31 B 138 Active 122/80 TR 2w MMC SP 10/01/23 32w 4d 269 lb 12.8 oz(+13 lb 3.2 oz) 32 130s Active 116/78 2w SLN MK 10/16/23 34w 5d 270 lb 6.4 oz(+13 lb 12.8 oz) 36 B 120s Active 132/84 TR 2w AKH ML 10/30/23 36w 5d 274 lb 12.8 oz(+18 lb 3.2 oz) B NST Act [place] 126/76 TR 1w JFD NST #8 GDM/Insulin - ML NST #1 AMA - ML 11/05/23 37w 4d 275 lb 3.2 oz(+18 lb 9.6 oz) B NST Acti ve 124/82 TR 1w KBB NST #2 AMA - BAL 11/10/23 38w 2d 278 lb 9.6 oz(+22 lb) 126/84 NST #3 AMA - SP 11/13/23 38w 5d 277 lb 9.6 oz(+21 lb) B NST Active 122 /82 1w SLN NST #4 AMA - SP 11/16/23 39w 1d 276 lb 6.4 oz(+19 lb 12.8 oz) 118/7 4 NST #5 AMA - ML 11/18/23 39w 3d 277 lb 3.2 oz(+20 lb 9.6 oz) B NST Acti ve 116/74 TR 1w KBB NST #6 AMA - Supervising Physician <Stacia Marin MD, FACOG - Last Filed: 11/24/23 07:46> Co-Signing Physician Notes Resident Physician Supervision Note: I interviewed and examined the patient. Discussed with [Name of resident] and agree with findings and plan as documented in the note. Any exceptions or clarifications are listed here: [None] Documented By: Stacia Marin MD, FACOG Resident Activity Tracking <Viral Tamez DO - Last Filed: 11/23/23 09:02> Resident Involvement: Resident Care Provided Care Provided: OB Delivery
--- NOTE | 2023-11-23 08:59 | Obstetrical Progress Note ---
Date of Service November 23, 2023 Assessment & Plan (1) Encounter for care and examination after delivery: Patient is POD 3 s/p repeat lower transverse and doing well - Eating well, voiding well, ambulating well - vitals reviewed and within normal limits - pain well controlled with analgesics - OOB, ambulation, diet progression as tolerated - Blood type: A positive, GBS carrier, rubella immune - Plan to discharge today - After discharge, 6 week follow up with Dr. Marin Physical Exam General: patient resting comfortably, NAD, non-toxic in appearance, answers questions appropriately. Skin: warm, dry, intact HEENT: NC/AT, anicteric sclera, conjunctiva without injection, moist mucus membranes. Heart: +S1/S2, regular rhythm and rate, no murmur Lungs: equal air entry bilaterally, no rales/rhonchi/wheezes Abd: +BS, soft, NT/ND, uterine fundus firm at umbilicus, caesarean incision C/D/I. Ext: warm, no clubbing/cyanosis or edema, Maura's neg. Neuro: nonfocal, speech intact, no facial droop, moving all extremities. Results & Data Vital Signs (Past 12 Hours) Vital Signs Temp Pulse Resp BP Pulse Ox O2 Del Method 11/22/23 23:59 36.6 C 76 18 118/81 97 Room Air
== END 2023-11-23 11:05 | disposition home or self-care (01) | DRG 788 ==
LOC: 4S1 06:58 → EDSTATUS 10:40 → 4E2 14:41
DX: Z3A.39 39 weeks gestation of pregnancy; B95.1 Streptococcus, group B, as the cause of diseases classified elsewhere; O32.8XX0 Maternal care for other malpresentation of fetus, not applicable or unspecified; O24.429 Gestational diabetes mellitus in childbirth, unspecified control; O34.211 Maternal care for low transverse scar from previous cesarean delivery; Z37.0 Single live birth; O99.824 Streptococcus B carrier state complicating childbirth